=== PATIENT | female | born 1960 | race Caucasian/White ===

== ENCOUNTER 2019-09-12 16:52 | Outpatient (REF) | payer MEDICAID, SELFPAY ==
[2019-09-12 21:50] LABS: HCT 43.1 % (36.0-46.0); HGB 14.4 g/dL (12.0-15.5); Mean Corp. HGB Concentration 33.4 g/dL (32.0-36.0); Mean Corpuscular Hemoglobin 31.1 pg (27.0-33.0); Mean Corpuscular Volume 93.1 fL (80-95); Mean Platelet Volume 11.5 fL (8.0-11.0); Platelet Count 251 x1000/uL (130-400); RBC 4.63 m/cumm (4.00-5.20); White Blood Cell Count 5.91 k/cumm (4.4-10.8)
[2019-09-12 22:17] LABS: ALT 31 U/L (14-59); AST 15 U/L (15-37); Alkaline Phosphatase 48 U/L (46-116); Anion Gap 8.8 mmol/L (3-11); BUN 22 mg/dL (7-18); Bilirubin, Total 0.4 mg/dL (0.2-1.0); CO2 27.2 mmol/L (21.0-32.0); CREATININE 0.62 mg/dL (0.55-1.02); Calcium 9.2 mg/dL (8.5-10.1); Chloride 105 mmol/L (98-107); Glucose 77 mg/dL (74-106); Potassium 4.2 mmol/L (3.5-5.1); Sodium 141 mmol/L (136-145); TSH 2.36 uIU/mL (0.36-3.74); Total Protein 7.2 g/dL (6.4-8.2)
[2019-09-12 22:38] LABS: FREE T4 1.01 ng/dL (0.76-1.46)
[2019-09-12 22:42] LABS: ESR 6 mm/hr (0-30)
== END 2019-09-12 17:12 ==
LOC: NCHCN 16:52
PROVIDERS: PCP Internal Medicine; Visit Provider Internal Medicine
DX: R53.83 Other fatigue (principal); M25.50 Pain in unspecified joint; R00.2 Palpitations; M79.10 Myalgia, unspecified site
CPT/HCPCS: 80053; 85027; 85652; 84439; 84443

== ENCOUNTER 2022-06-26 15:46 | Outpatient (REF) | payer MEDICAID, SELFPAY ==
[2022-06-26 21:28] LABS: Abs Immature Grans 0.02 10^3/uL (0.0-0.06); Absolute Basophil Count 0.02 10^3/uL (0.0-0.2); Absolute Eosinophil Count 0.11 10^3/uL (0.0-0.7); Absolute Lymphocyte Count 0.96 10^3/uL (1.2-3.4); Absolute Monocyte Count 0.65 10^3/uL (0.1-0.8); Absolute Neutrophil Count 3.21 10^3/uL (1.2-6.7); Basophils % 0.4; Eosinophils % 2.2; HCT 44.1 % (36.0-46.0); HGB 14.6 g/dL (11.2-15.7); Immature Grans % 0.4; Lymphocytes % 19.3; MCH 30.9 pg (27.0-33.0); MCHC 33.1 % (32.0-36.0); MCV 93 fL (80-95); Monocytes % 13.1; Neutrophils % 64.6; Platelet Count 226 10^3/uL (130-400); RBC 4.73 10^6/uL (3.93-5.22); RDW 12.2 % (11.7-14.6); RDW-SD 41.8 fL; WBC 4.97 10^3/uL (4.4-10.8)
[2022-06-26 21:46] LABS: ALT 33 U/L (14-59); AST 23 U/L (15-37); Albumin 4.1 g/dL (3.4-5.0); Alkaline Phosphatase 57 U/L (46-116); Anion Gap 8.4 mmol/L (3-11); BUN 15 mg/dL (7-18); Bilirubin, Total 0.4 mg/dL (0.2-1.0); CO2 27.6 mmol/L (21.0-32.0); CREATININE 1.1 mg/dL (0.55-1.02); Calcium 9.4 mg/dL (8.5-10.1); Chloride 100 mmol/L (98-107); Estimated GFR 56.81 (mL/min/1.73m2); Glucose 106 mg/dL (74-106); Potassium 4.5 mmol/L (3.5-5.1); Sodium 136 mmol/L (136-145); Total Protein 7.7 g/dL (6.4-8.2)
== END 2022-06-26 15:47 | disposition home or self-care (01) ==
LOC: NCHCN 15:46
PROVIDERS: PCP Internal Medicine; Visit Provider Family Medicine
DX: R50.9 Fever, unspecified (principal); B34.9 Viral infection, unspecified
CPT/HCPCS: 80053; 85025

== ENCOUNTER → 2022-06-26 18:39 | Outpatient (CLI) | payer MEDICAID, SELFPAY ==
--- NOTE | 2022-06-26 | DI.RAD_ITS ---
Exam(s) XR CHEST 2V PA LATERAL EXAM: XR CHEST 2V PA LATERAL CLINICAL HISTORY: COUGH R05.8 FEVER R50.9 TECHNIQUE: 2D digital imaging was performed of the chest. Two images were obtained. PA and lateral views were obtained. COMPARISON: CR CHEST 2 VIEWS PA,LAT from 03/29/2016 FINDINGS: MEDIASTINUM: Normal. HEART: Normal. PULMONARY VASCULATURE: Normal. LUNGS: Clear. PLEURAL SPACE: No pleural effusion or pneumothorax. BONE:Within normal limits for the patient's age. OTHER FINDINGS:Normal. IMPRESSION: No acute pulmonary findings. DATA REPOSITORY: RADIATION DOSE DELIVERED:
== END ==
PROVIDERS: PCP Internal Medicine; Visit Provider Family Medicine
DX: R05.9 Cough, unspecified (principal); R50.9 Fever, unspecified
CPT/HCPCS: 71046

== ENCOUNTER 2022-11-24 21:18 | Emergency (ER) | payer MEDICAID, SELFPAY ==
--- NOTE | 2022-11-24 21:15 | RT.EKG_ITS ---
APPROVED REPORT Exam: Resting ECG Reason for Exam: dizziness Patient Location: E HR:102 bpm ECG Measurements Heart Rate 102 AXIS NM 161 P 74 QRSd 78 QRS -12 QT 357 T 8 QTc 464 Conclusion Sinus tachycardia...rate> 99 Atrial premature complex...SV complex w/ short R-R interval Probable left atrial enlargement...P >50mS, <-0.10mV V1
[2022-11-24 21:26] VITALS: BP 156/125; PULSE 99; RESP 18; O2SAT 98
[2022-11-24 21:28] VITALS: BP 116/102; TEMP 36.6
--- NOTE | 2022-11-24 21:56 | NUR.NOTE ---
SANDRA Thomas made aware that RNs were unable to get an EKG d/t pt shaking and causing too much artifact for test. Per SANDRA Thomas after her assessment pt refused everything except fluids. LR given. Pt refused zofran.
[2022-11-24] MEDS: Lactated Ringers 1,000 ML 1000 ML IV (22:00)
[2022-11-24 22:25] LABS: Abs Immature Grans 0.04 10^3/uL (0.0-0.06); Absolute Basophil Count 0.07 10^3/uL (0.0-0.2); Absolute Eosinophil Count 0.37 10^3/uL (0.0-0.7); Absolute Lymphocyte Count 4.07 10^3/uL (1.2-3.4); Absolute Monocyte Count 0.75 10^3/uL (0.1-0.8); Absolute Neutrophil Count 3.49 10^3/uL (1.2-6.7); Basophils % 0.8; Eosinophils % 4.2; HGB 14.2 g/dL (11.2-15.7); Immature Grans % 0.5; Lymphocytes % 46.3; MCH 30.9 pg (27.0-33.0); MCHC 33.8 % (32.0-36.0); MCV 91 fL (80-95); MPV 10.2 fL (8.0-11.0); Monocytes % 8.5; Neutrophils % 39.7; Platelet Count 263 10^3/uL (130-400); RDW 12.8 % (11.7-14.6); RDW-SD 42.4 fL; WBC 8.79 10^3/uL (4.4-10.8)
[2022-11-24] MEDS: Prochlorperazine 10 MG/2 ML VIAL IVP (22:25)
[2022-11-24] MEDS: diphenhydrAMINE 50 MG/ML VIAL 12.5 MG IVP (22:25)
[2022-11-24 22:40] LABS: ALT 36 U/L (14-59); AST 22 U/L (15-37); Albumin 3.9 g/dL (3.4-5.0); Alkaline Phosphatase 57 U/L (46-116); Anion Gap 6.8 mmol/L (3-11); BUN 22 mg/dL (7-18); Bilirubin, Total 0.3 mg/dL (0.2-1.0); CO2 28.2 mmol/L (21.0-32.0); Calcium 9.7 mg/dL (8.5-10.1); Chloride 104 mmol/L (98-107); Glucose 120 mg/dL (74-106); Magnesium 2.1 mg/dL (1.8-2.4); Potassium 3.6 mmol/L (3.5-5.1); Sodium 139 mmol/L (136-145); Total Protein 7.5 g/dL (6.4-8.2)
--- NOTE | 2022-11-24 23:05 | ED.GENADUL_ITS ---
Discharge Plan Disposition Patient Disposition: Home Discharge Details Clinical Impression: Nausea & vomiting Primary Care Provider: Nuno Montana ED Provider: Martha Sandoval Home Meds and New Rx's Prescriptions: No Action No Known Home Meds Discharge Instructions Instructions: Acute Nausea and Vomiting (ED) Additional Instructions: Keep yourself hydrated, lashaun andra, Gatorade, water, popsicles Zofran as needed for nausea and vomiting Stay away from solid foods until you are able to tolerate liquid Return earlier should you have new or worsening complaints Referrals: Nuno Montana MD [Primary Care Provider] - Discharge Data Discharge Date/Time-TO BE ENTERED AT DEPARTURE: 11/24/22 23:58 Medical Decision Making 62-year-old female presents with acute onset of nausea, vomiting, lightheadedness Denies any chest pain or shortness of breath. Has had similar episodes in the past with reactions to chicken per patient No indication for imaging at this time aside Initially refusing medications and agreeable to fluids only, started vomiting again, subsequently agreeable to antiemetics Time of reassessment appears improved Attempt made to ambulate patient and she still states that she feels too weak Denies any chest pain, shortness of breath Will initiate 1 more liter for suspected dehydration and patient will be discharged at that time if symptomatically improved Return precautions reviewed and patient expressed understanding, diagnostic labs reviewed without evidence of acute abnormality aside from mild dehydration HPI General Date/Time Provider Initiated Documentation: 11/24/22 21:20 . HPI Narrative: This 62-year-old female presents with report of nausea and vomiting 1 hour prior to arrival. States she ate some chicken that had been sitting out for approximately 2 hours. States she also has a history of allergic reactions to protein such as chicken. States that initially she was lightheaded but is feeling improvement. Denies chest pain or shortness of breath. Related Data Home Medications Medication Instructions Recorded Confirmed Unknown [No Known Home Meds] 03/29/16 11/24/22 Allergies Allergy/AdvReac Type Severity Reaction Status Date / Time aspirin Allergy Severe Difficulty Unverified 11/24/22 21:25 Breathing codiene AdvReac Intermediate delusions Uncoded 11/24/22 21:25 General Stated Complaint: Nausea/Vomit/Diar DHRUV: 3 PFSH All Active Problems (Updated 11/24/22 @ 23:19 by SANDRA Koroma) Nausea & vomiting (Acute) Medical History (Updated 11/24/22 @ 23:19 by SANDRA Koroma) Food allergy Surgical History (Updated 04/06/15 @ 12:54 by Nena Marie MD) ureteral reimplantation for reflux at age 5 Family History (Updated 04/06/15 @ 12:54 by Nena Marie MD) Other Colon cancer Social History Smoking/Tobacco Use Status: Never Smoking risk assessment performed?: Yes Alcohol Intake: never Drug use: Never Substance use type: does not use Exam Const General: cooperative, comfortable and no acute distress Orientation: alert and oriented x3 Eyes Sclera: sclerae normal Pupils: PERRL Resp Effort & Inspection: normal respiratory effort Auscultation: clear to auscultation bilaterally Cardio Rate: regular rate Rhythm: regular rhythm GI Inspection: normal to inspection Other: Nontender abdominal exam Skin General skin exam: no rashes or lesions noted Neuro General: patient alert and patient oriented x3 Course Vital Signs Vital signs: Vital Signs Pulse 99 H 11/24/22 21:26 Respiratory Rate 18 11/24/22 21:26 Blood Pressure 156/125 H 11/24/22 21:26 Pulse Oximetry 98 11/24/22 21:26 Temperature 36.6 C 11/24/22 21:28 Temperature Source Tympanic 11/24/22 21:28 Pulse 99 H 11/24/22 21:26 Respiratory Rate 18 11/24/22 21:26 Blood Pressure 116/102 H 11/24/22 21:28 Pulse Oximetry 98 11/24/22 21:26 Oxygen Delivery Method Room Air 11/24/22 21:26 Oxygen Flow Rate 0 11/24/22 21:26 Lab/Test Results Lab/Test Results: Laboratory Tests Range/Units 11/24/22 11/24/22 21:30 21:30 WBC (4.4-10.8) 10^3/uL 8.79 RBC (3.93-5.22) 10^6/uL 4.60 Hgb (11.2-15.7) g/dL 14.2 Hct (36.0-46.0) % 42.0 MCV (80-95) fL 91 MCH (27.0-33.0) pg 30.9 MCHC (32.0-36.0) % 33.8 RDW (11.7-14.6) % 12.8 Plt Count (130-400) 10^3/uL 263 MPV (8.0-11.0) fL 10.2 Immature Gran % 0.5 Neutrophils % 39.7 Lymphocytes % 46.3 Monocytes % 8.5 Eosinophils % 4.2 Basophils % 0.8 Nucleated RBC % (0.0-0.3) % 0.0 Absolute Neutrophils (1.2-6.7) 10^3/uL 3.49 Absolute Lymphocytes (1.2-3.4) 10^3/uL 4.07 H Absolute Monocytes (0.1-0.8) 10^3/uL 0.75 Absolute Eosinophils (0.0-0.7) 10^3/uL 0.37 Absolute Basophils (0.0-0.2) 10^3/uL 0.07 Sodium (136-145) mmol/L 139 Potassium (3.5-5.1) mmol/L 3.6 Chloride (98-107) mmol/L 104 Carbon Dioxide (21.0-32.0) mmol/L 28.2 Anion Gap (3-11) mmol/L 6.8 BUN (7-18) mg/dL 22 H Creatinine (0.55-1.02) mg/dL 1.0 Est GFR (CKD-EPI 2020) (mL/min/1.73m2) 63.70 Glucose (74-106) mg/dL 120 H Calcium (8.5-10.1) mg/dL 9.7 Magnesium (1.8-2.4) mg/dL 2.1 Total Bilirubin (0.2-1.0) mg/dL 0.3 AST (15-37) U/L 22 ALT (14-59) U/L 36 Alkaline Phosphatase (46-116) U/L 57 Total Protein (6.4-8.2) g/dL 7.5 Albumin (3.4-5.0) g/dL 3.9
[2022-11-24 23:36] VITALS: BP 114/54; PULSE 85; RESP 15; TEMP 36.9; O2SAT 96
--- NOTE | 2022-11-24 23:58 | NUR.NOTE ---
@[id number]-Attempted to road test pt. Pt vomited again. Offered to have pt finish out second liter LR prior to leaving but she declined and would like to go home. She agreed to take bottle of zofran and verb understanding of dosage.
== END 2022-11-24 23:58 | disposition home or self-care (01) ==
PROVIDERS: Emergency Provider Physician Assistant; PCP Internal Medicine
DX: R11.2 Nausea with vomiting, unspecified (principal); R42 Dizziness and giddiness
CPT/HCPCS: 80053; 93005; 96361; 96374; 96375; 99284; 83735; 85025; 93010; J0780; J1200